=== PATIENT | female | born 1935 | race Caucasian/White ===

== ENCOUNTER 2018-10-03 05:55 | Day surgery (SDC) | payer OTHER ==
[~2018-10-03 05:55] MED LIST: CARVEDILOL12.5 MG PO; COZAAR50 MG PO; LIPITOR20 MG PO
== END 2018-10-03 11:00 | disposition home or self-care (01) ==
LOC: CIR.AMB 05:55
DX: R22.32 Localized swelling, mass and lump, left upper limb (principal)